=== PATIENT | male | born 1980 | race Hispanic/Latino ===

== ENCOUNTER 2017-08-23 17:43 | Emergency (ER) | payer SELFPAY ==
[2017-08-23] MEDS ORDERED: KETOROLAC TROMETHAMINE 30MG/ML ONE (18:09)
[2017-08-23 18:19] LABS: BASOPHILS % (AUTO) 0.7 % (0.0-5.0); EOSINOPHILS % (AUTO) 7.5 % (0.0-8.0); HEMATOCRIT 50.1 % (42-54); LYMPHOCYTES % (AUTO) 40.5 % (21.0-51.0); MEAN CORPUSCULAR HEMOGLOBIN 32.8 pg (27.0-33.0); MEAN CORPUSCULAR HGB CONC 34.5 g/dL (32.0-36.0); MONOCYTES % (AUTO) 6.3 % (3.0-13.0); NUCLEATED RED BLOOD CELLS 0.1 % (0.0-0.19); PLATELET COUNT (AUTO) 291 K/uL (130-400); RED BLOOD CELL COUNT(AUTO) 5.28 MIL/uL (4.50-6.20); RED CELL DISTRIBUTION WIDTH 12.1 % (11.0-15.5); WHITE BLOOD COUNT (AUTO) 9.1 K/uL (4.8-10.8)
[2017-08-23 18:30] LABS: CREATININE 0.8 mg/dL (0.5-1.5)
[2017-08-23 18:45] LABS: CREATINE KINASE MB 0.7 ng/mL (0.5-3.6)
== END 2017-08-23 19:24 | disposition home or self-care (01) ==
LOC: EDH 17:43
DX: E11.9 Type 2 diabetes mellitus without complications (principal); R07.9 Chest pain, unspecified; Z79.4 Long term (current) use of insulin
CPT/HCPCS: 36415; 71046; 80048; 82550; 82553; 84484; 85025; 93005; 96372; 99285; J1885